=== PATIENT | male | born 1940 | race Two or more races ===

== ENCOUNTER → 2019-03-13 | Outpatient (CLI) | payer MEDICARE, BC | END | disposition home or self-care (01) | LOC: MSC 16:15 | PROVIDERS: ATTEND Anesthesiology | DX: M46.96 Unspecified inflammatory spondylopathy, lumbar region (principal); M40.299 Other kyphosis, site unspecified; M62.830 Muscle spasm of back; M79.2 Neuralgia and neuritis, unspecified; M25.9 Joint disorder, unspecified; M96.1 Postlaminectomy syndrome, not elsewhere classified; G89.4 Chronic pain syndrome; E11.9 Type 2 diabetes mellitus without complications; R51 Headache; F41.8 Other specified anxiety disorders; F11.20 Opioid dependence, uncomplicated ==

== ENCOUNTER 2019-03-27 16:00 | Outpatient (CLI) | payer MEDICARE, BC | END 2019-03-27 23:59 | disposition home or self-care (01) | LOC: MSC 16:00 | PROVIDERS: ATTEND Anesthesiology | DX: M46.96 Unspecified inflammatory spondylopathy, lumbar region (principal); M62.830 Muscle spasm of back; G89.4 Chronic pain syndrome; M79.2 Neuralgia and neuritis, unspecified; M25.9 Joint disorder, unspecified; M96.1 Postlaminectomy syndrome, not elsewhere classified; F11.20 Opioid dependence, uncomplicated ==